=== PATIENT | female | born 1995 | race Caucasian/White ===

== ENCOUNTER 2019-04-29 17:41 | Emergency (ER) | payer OTHER ==
[~2019-04-29] VITALS: Ht 157.5 cm; Wt 59.0 kg
[2019-04-29 17:45] VITALS: Ht 157.5 cm; Wt 59.0 kg
[2019-04-29 19:46] VITALS: BP 117/61
== END 2019-04-29 19:46 | disposition home or self-care (01) ==
LOC: ED 17:41
DX: S93.401A Sprain of unspecified ligament of right ankle, initial encounter (principal); S80.01XA Contusion of right knee, initial encounter; R07.89 Other chest pain; Z88.1 Allergy status to other antibiotic agents; V48.5XXA Car driver injured in noncollision transport accident in traffic accident, initial encounter; Y93.I9 Activity, other involving external motion; Y92.488 Other paved roadways as the place of occurrence of the external cause; Y99.8 Other external cause status
CPT/HCPCS: J1885; Q0092